=== PATIENT | male | born 1955 | race Caucasian/White ===

== ENCOUNTER 2020-02-05 09:36 | Emergency (ER) | payer MEDICARE, OTHER ==
[~2020-02-05] VITALS: Ht 170.2 cm; Wt 75.0 kg
[2020-02-05 09:43] VITALS: BP 122/76
== END 2020-02-05 10:11 | disposition home or self-care (01) ==
LOC: ER 09:36
DX: Z76.0 Encounter for issue of repeat prescription (principal); E78.00 Pure hypercholesterolemia, unspecified; Z59.0 Homelessness
CPT/HCPCS: 99281; 99283

== ENCOUNTER 2020-03-17 07:26 | Emergency (ER) | payer MEDICARE | END 2020-03-17 08:13 | disposition left against medical advice (07) | LOC: ER 07:38 | DX: R68.89 Other general symptoms and signs (principal); Z53.21 Procedure and treatment not carried out due to patient leaving prior to being seen by health care provider ==

== ENCOUNTER 2021-10-23 21:12 | Emergency (ER) | payer MEDICARE, MEDICAID ==
[~2021-10-23] VITALS: Ht 177.8 cm; Wt 91.0 kg
[2021-10-23 21:18] VITALS: BP 142/100
== END 2021-10-24 06:46 | disposition left against medical advice (07) ==
LOC: ER 21:12
DX: M79.18 Myalgia, other site (principal); J44.9 Chronic obstructive pulmonary disease, unspecified; E78.00 Pure hypercholesterolemia, unspecified; I10 Essential (primary) hypertension; I25.2 Old myocardial infarction; F20.9 Schizophrenia, unspecified
CPT/HCPCS: 93005; 99283